=== PATIENT | male | born 2000 | race African-American/Black ===

== ENCOUNTER 2022-01-20 11:39 | Emergency (ER) | payer BC, SELFPAY ==
[2022-01-20 12:00] VITALS: BP 150/98; PULSE 65; RESP 16; TEMP 36.9; O2SAT 100
[2022-01-20 12:21] LABS: Basophils Percent Auto 0.1 % (0.2-1.2); Hematocrit 43.8 % (42.0-52.0); Hemoglobin 15.3 g/dL (14.0-18.0); Immature Granulocyte Absolute 0.02 K/mm3 (0.00-0.031); Immature Granulocyte Percent A 0.2 % (0-0.5); Lymphocytes Absolute Auto 1.29 K/mm3 (0.9-3.2); Lymphocytes Percent Auto 13.3 % (18.3-44.2); Mean Corpuscular HGB Conc 34.9 g/dl (32-36); Mean Corpuscular Hemoglobin 29.7 pg (26-34); Mean Corpuscular Volume 84.9 fl (80-100); Mean Platelet Volume 11.5 fl (7.4-10.4); Monocytes Absolute Auto 0.4 K/mm3 (0.1-0.6); Neutrophils Percent Auto 82.4 % (45.5-73.1); Platelet Count Result 285 k/mm3 (150-375); Red Blood Count 5.16 M/mm3 (4.6-6.20); White Blood Count 9.7 K/mm3 (4.5-10.0)
[2022-01-20 12:35] LABS: Alanine Aminotransferase 27 U/L (6-50); Albumin Level 5.8 g/dL (3.5-5.1); Alkaline Phosphatase 62 U/L (38-126); Anion Gap 15 mmol/L (8-16); Aspartate Amino Transferase 35 U/L (17-59); Bilirubin,Total 1.3 mg/dL (0.2-1.3); Blood Urea Nitrogen 18 mg/dL (9-20); Calcium 10.2 mg/dL (8.4-10.2); Carbon Dioxide 24 mmol/L (22-30); Chloride 97 mmol/L (98-107); Estimated CRCL calculation 92 ml/min; Estimated Glomerular Filt Rate > 60; Glucose 133 mg/dL (65-110); Lipase 94 U/L (23-300); Potassium 3.8 mmol/L (3.4-5.0); Sodium 136 mmol/L (137-145)
[2022-01-20 12:48] LABS: Appearance Urine Clear (Clear); Bilirubin Urine 1+ (Negative); Color Urine Amber (Yellow); Glucose Urine UA Negative (Negative); Ketones Urine 4+ mg/dL (Negative); Leukocyte Esterase Ur Negative LEU/UL (Negative); Nitrate Urine Negative (Negative); Protein Urine 3+ mg/dL (Negative); Specific Grav Ur 1.025 (1.001-1.035); pH Urine 7.5 (5.0-9.0)
[2022-01-20 12:53] LABS: Mucus Urine Heavy /lpf; WBC Urine 0-3 /hpf
[2022-01-20] MEDS: ONDANSETRON INJ 4 MG/2 ML VIAL IV PUSH (13:00)
[2022-01-20] MEDS: LACTATED RINGERS 1,000 ML 999 ML IV CONT (13:00)
[2022-01-20] MEDS: PANTOPRAZOLE SODIUM IV 40 MG VIAL IV PUSH (13:01)
[2022-01-20 13:08] LABS: Add Urine Microscopic? YES; Blood Urine Trace-Intact (Negative)
[2022-01-20 13:20] VITALS: BP 191/105; PULSE 60
[2022-01-20 13:21] VITALS: BP 172/97; PULSE 60
[2022-01-20 13:22] VITALS: BP 180/100; PULSE 62
--- NOTE | 2022-01-20 13:32 | ED.ABDPAIN ---
HPI - Abdominal Pain General Chief Complaint: Abdominal Pain Stated Complaint: Vomiting Time Seen by Provider: 01/20/22 12:06 Source: patient and RN notes reviewed Mode of arrival: ambulatory Limitations: no limitations History of Present Illness HPI narrative: This is a 21 year old male who presents for evaluation of nausea and vomiting. Patient has history of GERD and other GI issues in which he has had multiple scopes. His family at bedside states doctors state they have not seen anything on his scopes. Patient is suppose to take Pepcid daily but he has run out of the prescription, and he takes sucralfate. Last night patient started eating some greek food when he developed nausea and vomiting. He states starting 15 minutes after eating he developed nausea and vomiting. He denies fever, chills. He has intermittent epigastric pain . He has cramping pain with emesis. He denies diarrhea. Related Data Home Medications Medication Instructions Recorded Confirmed sucralfate [Carafate] g BID 01/20/22 Allergies Allergy/AdvReac Type Severity Reaction Status Date / Time peanut Allergy Anaphylaxis Verified 01/20/22 13:17 Review of Systems Review of Systems: All systems reviewed & are unremarkable except as noted in HPI and below Constitutional: Constitutional: Denies chills and Denies fever(s) Cardiovascular: Cardiovascular: Denies chest pain and Denies radiating jaw, neck or arm pain Respiratory: Respiratory: Denies cough and Denies dyspnea Gastrointestinal: Gastrointestinal: Reports abdominal pain, Denies diarrhea, Reports nausea and Reports vomiting PMFSH Past Medical History Medical History (Updated 01/20/22 @ 14:37 by Jerica Milton MD) GERD (gastroesophageal reflux disease) Surgical History Surgical History (Updated 01/20/22 @ 14:34 by Jerica Milton MD) No pertinent past surgical history Social History Social History (Updated 01/20/22 @ 14:35 by Jerica Milton MD) Smoking status: Current some day smoker Tobacco type: cigars Alcohol intake: current Alcohol use details: occasionally Substance use type: marijuana Exam Const: General: alert Orientation/consciousness: patient oriented x3 Eyes: EOM: EOMs intact bilaterally Chest: Chest palpation & inspection: normal inspection of the chest Resp: Effort & Inspection: normal respiratory effort and no retractions Auscultation: clear to auscultation bilaterally Cardio: Rate: regular rate Rhythm: regular rhythm Heart sounds: no murmurs GI: GI Palp: Yes Soft to palpation, No Tenderness to palpation present (GI), No Guarding due to palpation present (GI) and No Rigid due to palpation Auscultation: normal bowel sounds Back/Spine/Pelvis: Back: no CVA tenderness Skin: General skin exam: normal color Rashes: no rashes Neuro: General: patient oriented x3, moves all extremities and CN's II-XI intact bilaterally Extrem: General: normal to inspection Psych: Mental Status: mental status grossly normal Affect: normal affect Course Reevaluation(s) Reevaluation #1: PAtient states he feels better He has been able to tolerate PO. I discussed discharge plan . Date: 01/20/22 Time: 14:35 Vital Signs Vital signs: Vital Signs Temperature 98.4 F 01/20/22 12:00 Pulse Rate 65 01/20/22 12:00 Respiratory Rate 16 01/20/22 12:00 Blood Pressure 150/98 H 01/20/22 12:00 Pulse Oximetry 100 01/20/22 12:00 Temperature 98.4 F 01/20/22 12:00 Pulse Rate 60 01/20/22 14:55 Respiratory Rate 16 01/20/22 14:55 Blood Pressure 150/99 H 01/20/22 14:55 Pulse Oximetry 99 01/20/22 14:55 MDM - Abdominal Pain Lab Data Attestation: I reviewed the patient's lab results. Result diagrams: 01/20/22 12:11 01/20/22 12:11 Labs: Lab Results 01/20/22 01/20/22 01/20/22 Range/Units 12:11 12:11 12:36 WBC 9.7 (4.5-10.0) K/mm3 RBC 5.16 (4.6-6.20) M/mm3
[2022-01-20 14:55] VITALS: BP 150/99; PULSE 60; RESP 16; O2SAT 99
== END 2022-01-20 14:55 | disposition home or self-care (01) ==
PROVIDERS: Emergency Medicine; Emergency Provider General Practice
DX: R11.2 Nausea with vomiting, unspecified (principal); K21.9 Gastro-esophageal reflux disease without esophagitis; F17.290 Nicotine dependence, other tobacco product, uncomplicated
CPT/HCPCS: 36415; 80053; 81001; 83690; 85025; 96361; 96374; 96375; 99284; C9113; J2405; J7120